=== PATIENT | male | born 1975 | race Caucasian/White ===

== ENCOUNTER 2021-08-10 06:45 | Observation (INO) ==
--- NOTE | 2021-08-10 07:01 | CT Scan Report ---
CT SCAN OF THE BRAIN WITHOUT IV CONTRAST CLINICAL HISTORY: Strokelike symptoms. Left-sided weakness. COMPARISON STUDY: No priors. TECHNIQUE: Unenhanced axial CT scan of the brain is performed from the vertex to the skull base. A d ose lowering technique was utilized adhering to the principles of ALARA. CT DOSE: 638.56 mGycm FINDINGS: Brain parenchyma: A small chronic lacunar infarct is noted in the left cerebellar hemisphere. There i s no hemorrhage, mass effect, or evidence of acute territorial ischemia by CT criteria. Gomez-white ma tter differentiation is preserved. No extra-axial fluid collection is seen. Ventricles, sulci, cisterns: Normal in configuration. Intracranial vasculature: The visualized intracranial vasculature at the skull base is normal in appe arance. Calvarium: Unremarkable. Sinuses and mastoids: The visualized paranasal sinuses are clear. The mastoid air cells are well pneu matized. Orbits: The bony orbits are grossly intact. IMPRESSION: 1. Partial no stroke 2. A small chronic lacunar infarct is noted in the left cerebellar hemisphere. ACT 112: Negative or not required by law. Electronically signed by: Carlos Kennedy M.D. 08/10/2021 7:00 AM
[2021-08-10] MEDS ORDERED: OPTIRAY 320 125ml IV ONE (07:03)
--- NOTE | 2021-08-10 07:16 | Emergency Department Note ---
Impression & Plan Weakness of left side of body, Brain TIA, HTN (hypertension) ED Provider Note Provider: Jose Miguel Pyle MD DATE OF SERVICE: 08/10/2021 CHIEF COMPLAINT: Left-sided weakness and numbness HISTORY OF PRESENT ILLNESS: Patient is a 45-year-old gentleman history of hypertension presenting with sudden onset left leg numbness and weakness starting around 6 AM the progressed around 6:20 AM or so to some left arm numbness and weakness. No associated headache or trauma. Denies right-sided symptoms. Denies any speech issues. Denies significant history of similar. Reports a history of occasionally some right-sided sciatica but this feels quite different again is on the left side. Patient states she took 4 baby aspirin came here for evaluation. Patient denies a history of stroke or CAD personally but there is a family history of A. fib. Patient is on amlodipine daily. Patient denies vomiting or clumsiness. Denies headache. Patient states he never has significantly elevated blood pressure like this. REVIEW OF SYSTEMS: A total of 10 review of systems was obtained and negative except as stated above in the HPI. PAST MEDICAL HISTORY: As noted above MEDICATIONS: Amlodipine Family history: A. 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 PERRL NECK: Trachea midline. Supple. ENT: Mucous membranes pink and moist. LUNGS: Airway patent. No retractions. HEART: Regular rate and rhythm. ABDOMEN: Soft and non-tender, without guarding or rebound. SKIN: Acyanotic, warm, dry, without rashes EXTREMITIES: Without swelling, tenderness or deformity NEUROLOGICAL: No aphasia. No facial droop or slurred speech. Normal strength and tone in the extremities. Sensation to gross touch normal although some subje ctive diminishment to touch reported by the patient however in the left arm and leg. He has good movement of these but states they feel a little bit off. Ambulatory. EK bpm sinus bradycardia. No PVC or PAC. No acute ST segment elevation noted with a QTC of 418. Normal axis. CONTINUOUS CARDIAC MONITORING: was ordered and showed a heart rate of 50s-70s bpm in normal sinus rhythm to sinus bradycardia Patient's laboratory studies and imaging reviewed. Differential includes Infection, dehydration, metabolic abnormality, hypo/hyperglycemia, electrolyte disturbance, anemia, hypoxia, cardiac sources, intracerebral event, toxicologic, neurologic, as well as other pathologies. IMPRESSION/MEDICAL DECISION MAKING: Patient is stroke alert from triage. Saw the patient on CT scan. No hem iplegia. CT of the head and CT angiogram of the head and neck completed reviewing radiology reads. Discussed with [facility] [place]. Discussed with patient and at bedside. Chronic lacunar infarct in age indeterminant left vertebral occlusion noted on CTH report. The patient has no headache or neck pain by report. Patient took 324mg aspirin prior to arrival. Discussion regarding risks and benefits and will defer against thrombolytics at this time as the patient has minimal symptoms and they are actually improving. Given the chronic findings as well as symptoms we will complete an MRI and have patient evaluated by the inpatient team as well as neurology here. Hospitalist contacted. Patient in discussion with telestroke neurology loaded with Plavix as well as Lipitor. MRI of the brain was ordered and later returned without evidence of acute stroke. DIAGNOSIS: Left sided numbness and weakness, TIA, hypertension DISPOSITION: Hospitalist will evaluate Patient was agreeable with this plan. Past Med/Surg History Medical History No active medical problems Family History Other No significant family history Social History Smoking Status: Never smoker Preferred Language: French Feels Safe at Home: Yes Allergies Allergies Allergy/AdvReac Type Severity Reaction Status Date / Time No Known Allergies Allergy Verified 08/10/21 09:00 Home Meds Home Medications Medication Instructions Recorded Confirmed amlodipine 2.5 mg tablet 2.5 mg PO QAM 08/10/21 08/10/21 aspirin 325 mg tablet 325 mg PO Q4H PRN 08/10/21 08/10/21 Results & Data (ED) Vital Signs Vital Signs - 24 hr 08/10/21 06:47 08/10/21 06:50 08/10/21 07:05 Temperature 36.9 C Temperature Source Temporal Artery Scan Pulse Rate 70 Pulse Rate from SpO2 Sensor Respiratory Rate 16 Blood Pressure 158/92 H 164/97 H Blood Pressure Mean 114 119 Pulse Oximetry 99 Oxygen Delivery Method Room Air Room Air Sepsis Recent Fever Within 48 Hours No Sepsis New/Unexplained Change in Mental Status No Sepsis Action Taken by Nursing No Action Required 08/10/21 07:06 08/10/21 07:15 08/10/21 07:18 Temperature Temperature Source Pulse Rate 62 75 Pulse Rate from SpO2 Sensor 64 Respiratory Rate 18 17 Blood Pressure 174/112 H Blood Pressure Mean 132 Pulse Oximetry 100 Oxygen Delivery Method Room Air Sepsis Recent Fever Within 48 Hours Sepsis New/Unexplained Change in Mental Status Sepsis Action Taken by Nursing 08/10/21 07:30 08/10/21 07:32 08/10/21 07:38 Temperature Temperature Source Pulse Rate 64 69 Pulse Rate from SpO2 Sensor Respiratory Rate 17 17 Blood Pressure 147/107 H 168/103 H Blood Pressure Mean 120 124 Pulse Oximetry Oxygen Delivery Method Sepsis Recent Fever Within 48 Hours Sepsis New/Unexplained Change in Mental Status Sepsis Action Taken by Nursing 08/10/21 07:45 08/10/21 08:03 Temperature Temperature Source Pulse Rate 70 58 L Pulse Rate from SpO2 Sensor 69 59 L Respiratory Rate 16 18 Blood Pressure 166/106 H Blood Pressure Mean 126 Pulse Oximetry 100 100 Oxygen Delivery Method Sepsis Recent Fever Within 48 Hours Sepsis New/Unexplained Change in Mental Status Sepsis Action Taken by Nursing Laboratory Data Result diagrams: 08/10/21 07:08 08/10/21 07:08 Lab Results 08/10/21 08/10/21 08/10/21 Range/Units 07:08 07:08 07:08 WBC 4.86 (4.8-10.8) K/uL RBC 4.57 L (4.7-6.1) M/uL Hgb 14.6 (14.0-18.0) g/dL Hct 41.7 L (42-52) % MCV 91.2 (80-100) fL MCH 31.9 (25-34) pg MCHC 35.0 (32-36) g/dL RDW Std Deviation 42.1 (36.4-46.3) fL RDW Coeff of Melvi 12.5 (11.5-14.5) % Plt Count 242 (130-400) K/uL MPV 9.8 (7.4-10.4) fL PT 12.0 (9.0-12.0) Seconds INR 1.1 (0.9-1.1) APTT 29.2 (21.0-31.0) Seconds PTT Ratio 1.1 Sodium 133 L (136-145) mmol/L Potassium 4.0 (3.5-5.1) mmol/L Chloride 103 (98-107) mmol/L Carbon Dioxide 27 (21-32) mmol/L Anion Gap 3 (3-11) BUN 21 (6-23) mg/dl Creatinine 1.07 (0.6-1.4) mg/dl Est Cr Clr Drug Dosing 80.2 ml/min Est GFR ( Amer) 96.7 ml/min Est GFR (Non-Af Amer) 83.4 ml/min BUN/Creatinine Ratio 19.6 (10-20) Glucose 108 H (70-99(Fasting)) mg/dl POC Glucose (70-99) mg/dl Calcium 9.0 (8.5-10.1) mg/dl Magnesium 1.9 (1.7-2.4) mg/dl Total Bilirubin 0.6 (0.2-1.0) mg/dl AST 21 (13-39) U/L ALT 18 (7-52) U/L Alkaline Phosphatase 55 (34-104) U/L Total Protein 6.0 (6.0-8.3) gm/dl Albumin 4.0 (3.4-5.0) gm/dl Globulin 2.0 L (2.5-4.0) gm/dl Albumin/Globulin Ratio 2.0 (0.9-2) SARS-CoV-2, RNA, NAAT (NEGATIVE) 08/10/21 08/10/21 Range/Units 07:11 08:11 WBC (4.8-10.8) K/uL RBC (4.7-6.1) M/uL Hgb (14.0-18.0) g/dL Hct (42-52) % MCV (80-100) fL MCH (25-34) pg MCHC (32-36) g/dL RDW Std Deviation (36.4-46.3) fL RDW Coeff of Melvi (11.5-14.5) % Plt Count (130-400) K/uL MPV (7.4-10.4) fL PT (9.0-12.0) Seconds INR (0.9-1.1) APTT (21.0-31.0) Seconds PTT Ratio Sodium (136-145) mmol/L Potassium (3.5-5.1) mmol/L Chloride (98-107) mmol/L Carbon Dioxide (21-32) mmol/L Anion Gap (3-11) BUN (6-23) mg/dl Creatinine (0.6-1.4) mg/dl Est Cr Clr Drug Dosing ml/min Est GFR ( Amer) ml/min Est GFR (Non-Af Amer) ml/min BUN/Creatinine Ratio (10-20) Glucose (70-99(Fasting)) mg/dl POC Glucose 110 H (70-99) mg/dl Calcium (8.5-10.1) mg/dl Magnesium (1.7-2.4) mg/dl Total Bilirubin (0.2-1.0) mg/dl AST (13-39) U/L ALT (7-52) U/L Alkaline Phosphatase (34-104) U/L Total Protein (6.0-8.3) gm/dl Albumin (3.4-5.0) gm/dl Globulin (2.5-4.0) gm/dl Albumin/Globulin Ratio (0.9-2) SARS-CoV-2, RNA, NAAT NEGATIVE (NEGATIVE) Administered Medications Discontinued Medications Atorvastatin Calcium (Atorvastatin 40 Mg Tab) 40 mg PO ONCE ONE Stop: 08/10/21 07:42 Last Admin: 08/10/21 08:15 Dose: 40 mg Documented by: [id number] Clopidogrel Bisulfate (Clopidogrel Bisulfate 300 Mg Tab) 300 mg PO NOW STA Stop: 08/10/21 07:41 Last Admin: 08/10/21 08:15 Dose: 300 mg Documented by: [id number] Ioversol (Optiray 320 125ml) 125 ml IV ONCE ONE Stop: 08/10/21 07:04 Last Admin: 08/10/21 07:03 Dose: 120 ml Documented by: [id number] Imaging Data Radiologist's Impression: Head CT 08/10/21 06:49 CT SCAN OF THE BRAIN WITHOUT IV CONTRAST CLINICAL HISTORY: Strokelike symptoms. Left-sided weakness. COMPARISON STUDY: No priors. TECHNIQUE: Unenhanced axial CT scan of the brain is performed from the vertex to the skull base. A dose lowering technique was utilized adhering to the principles of ALARA. CT DOSE: 638.56 mGycm FINDINGS: Brain parenchyma: A small chronic lacunar infarct is noted in the left cerebellar hemisphere. There is no hemorrhage, mass effect, or evidence of acute territorial ischemia by CT criteria. Gomez-white matter differentiation is pr eserved. No extra-axial fluid collection is seen. Ventricles, sulci, cisterns: Normal in configuration. Intracranial vasculature: The visualized intracranial vasculature at the skull base is normal in appearance. Calvarium: Unremarkable. Sinuses and mastoids: The visualized paranasal sinuses are clear. The mastoid air cells are well pneumatized. Orbits: The bony orbits are grossly intact. IMPRESSION: 1. Partial no stroke 2. A small chronic lacunar infarct is noted in the left cerebellar hemisphere. ACT 112: Negative or not required by law. Electronically signed by: Carlos Kennedy M.D. 08/10/2021 7:00 AM Head CTA 08/10/21 06:58 CT ANGIOGRAM OF THE BRAIN; CT ANGIOGRAM OF THE NECK CLINICAL HISTORY: Strokelike symptoms. Left-sided weakness. COMPARISON STUDY: Unenhanced CT of the brain performed the same day 08/10/2021. TECHNIQUE: Follow-up the IV administration of 120 of Optiray 320, CT angiogram of the head and neck was performed from the aortic arch to the vertex. Images are reviewed in the axial, sagittal, and coronal planes. 3-D MIPS images are created and assessed. IV contrast was administered without complication. All measurements were calculated based on NASCET criteria. A dose lowering technique was utilized adhering to the principles of ALARA. CT DOSE: 992.93 mGycm FINDINGS: Brain parenchyma: A small chronic lacunar infarct is noted in the left cerebellar hemisphere. There is no evidence of hemorrhage, mass effect, or acute territorial ischemia noting angiographic phase technique. There is no evidence of enhancing mass lesion on the angiogram phase images. The ventricles, sulci, and cisterns are normal in configuration. Gomez-white matter differentiation is preserved. No extra-axial fluid collection is seen. Thoracic aorta: Visualized portions of the thoracic aorta are normal in caliber. The aortic arch demonstrates 4-vessel variant anatomy. Right carotid arterial system: The right common carotid artery is widely patent, as are the right internal and external carotid arteries. Left carotid arterial system: The left common carotid artery is widely patent, as are the left internal and external carotid arteries. Vertebral arteries: The vertebral arteries are widely patent bilaterally noting a right-sided dominance. The left vertebral artery arises directly from the aortic arch. Subclavian arteries: Widely patent bilaterally. Intracranial vasculature: The internal carotid arteries are patent at the skull base, as are the anterior and middle cerebral arteries bilaterally. The vertebrobasilar system is diminutive but patent. There are large bilateral posterior communicating arteries and the posterior cerebral arteries are patent. The right vertebral artery is dominant. The left vertebral artery is diminutive. 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 There is no aneurysm seen throughout the intracranial circulation. Jugular veins: Patent bilaterally. Dural sinuses: Patent. Lung apices: Partially visualized upper lobe lung parenchyma appears clear. Soft tissues: The visualized pharyngeal soft tissues are normal in appearance noting angiographic phase technique. The oropharyngeal airway appears widely patent. The salivary and thyroid glands are normal in appearance. No cervical lymphadenopathy is seen. Skeletal structures: The calvarium appears intact. The cervical spine is within normal limits. Orbits: The bony orbits are intact. Orbital contents are normal as visualized. Sinuses and mastoids: The paranasal sinuses are clear. The mastoid air cells are well pneumatized. IMPRESSION: 1. There is no evidence of hemorrhage, mass effect, or acute territorial ischemia noting angiographic phase technique. 2. The vertebrobasilar system is diminutive MR large bilateral posterior communicating arteries. 3. 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 This vessel is diminutive and this is of indeterminant chronicity and significance. 4. Otherwise unremarkable CT angiogram of the brain. 5. Unremarkable CT angiogram of the neck. ACT 112: Negative or not required by law. Electronically signed by: Carlos Kennedy M.D. 08/10/2021 7:24 AM Neck CTA 08/10/21 06:58 CT ANGIOGRAM OF THE BRAIN; CT ANGIOGRAM OF THE NECK CLINICAL HISTORY: Strokelike symptoms. Left-sided weakness. COMPARISON STUDY: Unenhanced CT of the brain performed the same day 08/10/2021. TECHNIQUE: Follow-up the IV administration of 120 of Optiray 320, CT angiogram of the head and neck was performed from the aortic arch to the vertex. Images are reviewed in the axial, sagittal, and coronal planes. 3-D MIPS images are created and assessed. IV contrast was administered without complication. All measurements were calculated based on NASCET criteria. A dose lowering technique was utilized adhering to the principles of ALARA. CT DOSE: 992.93 mGycm FINDINGS: Brain parenchyma: A small chronic lacunar infarct is noted in the left cerebellar hemisphere. There is no evidence of hemorrhage, mass effect, or acute territorial ischemia noting angiographic phase technique. There is no evidence of enhancing mass lesion on the angiogram phase images. The ventricles, sulci, and cisterns are normal in configuration. Gomez-white matter differentiation is preserved. No extra-axial fluid collection is seen. Thoracic aorta: Visualized portions of the thoracic aorta are normal in caliber. The aortic arch demonstrates 4-vessel variant anatomy. Right carotid arterial system: The right common carotid artery is widely patent, as are the right internal and external carotid arteries. Left carotid arterial system: The left common carotid artery is widely patent, as are the left internal and external carotid arteries. Vertebral arteries: The vertebral arteries are widely patent bilaterally noting a right-sided dominance. The left vertebral artery arises directly from the aortic arch. Subclavian arteries: Widely patent bilaterally. Intracranial vasculature: The internal carotid arteries are patent at the skull base, as are the anterior and middle cerebral arteries bilaterally. The vertebrobasilar system is diminutive but patent. There are large bilateral posterior communicating arteries and the posterior cerebral arteries are patent. The right vertebral artery is dominant. The left vertebral artery is diminutive. 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 There is no aneurysm seen throughout the intracranial circulation. Jugular veins: Patent bilaterally. Dural sinuses: Patent. Lung apices: Partially visualized upper lobe lung parenchyma appears clear. Soft tissues: The visualized pharyngeal soft tissues are normal in appearance noting angiographic phase technique. The oropharyngeal airway appears widely patent. The salivary and thyroid glands are normal in appearance. No cervical lymphadenopathy is seen. Skeletal structures: The calvarium appears intact. The cervical spine is within normal limits. Orbits: The bony orbits are intact. Orbital contents are normal as visualized. Sinuses and mastoids: The paranasal sinuses are clear. The mastoid air cells are well pneumatized. IMPRESSION: 1. There is no evidence of hemorrhage, mass effect, or acute territorial ischemia noting angiographic phase technique. 2. The vertebrobasilar system is diminutive MR large bilateral posterior co mmunicating arteries. 3. 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 This vessel is diminutive and this is of indeterminant chronicity and significance. 4. Otherwise unremarkable CT angiogram of the brain. 5. Unremarkable CT angiogram of the neck. ACT 112: Negative or not required by law. Electronically signed by: Carlos Kennedy M.D. 08/10/2021 7:24 AM Brain MRI 08/10/21 07:43 MR brain wo con CLINICAL HISTORY: L weakness TECHNIQUE: Multiplanar and multisequence MR images of the brain were obtained without intravenous contrast. Comparison: Comparison is made to CTA head and neck 08/10/2021 FINDINGS: No abnormal restricted diffusion is identified. The white matter is unremarkable. The ventricular system is normal in appearance. No mass or abnormal enhancement is seen. There is no mass effect or midline shift. There is no evidence of acute intraparenchymal hemorrhage. No extra axial fluid collections are seen. The corpus callosum, pituitary gland, and cerebellar tonsils appear grossly unremarkable. Flow voids of the major intracranial arterial vessels are identified. The imaged portions of the paranasal sinuses, mastoid air cells, and orbits are unremarkable. IMPRESSION: No acute abnormalities. ACT 112: Negative or not required by law. Electronically signed by: Lev Costello M.D. 08/10/2021 8:58 AM Discharge Plan Visit Data Chief Complaint: Stroke/CVA Symptoms Stated Complaint: STROKE SYMPTOMS ED Provider: Jose Miguel Pyle Discharge Problem: Weakness of left side of body, Brain TIA, HTN (hypertension) Patient Disposition: Admitted As Inpatient Discharge Instructions Interventions: ED Discharge Assessment Last Done: 08/10/21 10:04 Discharge Problem: HTN (hypertension) Qualifiers: Hypertension type: unspecified Qualified Code(s): I10 - Essential (primary) hypertension
[2021-08-10 07:26] LABS: Hematocrit (blood only) 41.7 % (42-52); Hemoglobin 14.6 g/dL (14.0-18.0); Mean Corpuscular Hemoglobin 31.9 pg (25-34); Mean Corpuscular Volume 91.2 fL (80-100); Mean Platelet Volume 9.8 fL (7.4-10.4); Platelet Count 242 K/uL (130-400); RDW Coefficient of Variation 12.5 % (11.5-14.5); RDW Standard Deviation 42.1 fL (36.4-46.3); Red Blood Count 4.57 M/uL (4.7-6.1); White Blood Count 4.86 K/uL (4.8-10.8)
--- NOTE | 2021-08-10 07:26 | CT Scan Report ---
CT ANGIOGRAM OF THE BRAIN; CT ANGIOGRAM OF THE NECK CLINICAL HISTORY: Strokelike symptoms. Left-sided weakness. COMPARISON STUDY: Unenhanced CT of the brain performed the same day 08/10/2021. TECHNIQUE: Follow-up the IV administration of 120 of Optiray 320, CT angiogram of the head and neck w as performed from the aortic arch to the vertex. Images are reviewed in the axial, sagittal, and stephen nal planes. 3-D MIPS images are created and assessed. IV contrast was administered without complicati on. All measurements were calculated based on NASCET criteria. A dose lowering technique was utilize d adhering to the principles of ALARA. CT DOSE: 992.93 mGycm FINDINGS: Brain parenchyma: A small chronic lacunar infarct is noted in the left cerebellar hemisphere. There i s no evidence of hemorrhage, mass effect, or acute territorial ischemia noting angiographic phase akira hnique. There is no evidence of enhancing mass lesion on the angiogram phase images. The ventricles, sulci, and cisterns are normal in configuration. Gomez-white matter differentiation is preserved. No e xtra-axial fluid collection is seen. Thoracic aorta: Visualized portions of the thoracic aorta are normal in caliber. The aortic arch demo nstrates 4-vessel variant anatomy. Right carotid arterial system: The right common carotid artery is widely patent, as are the right int ernal and external carotid arteries. Left carotid arterial system: The left common carotid artery is widely patent, as are the left manager internship al and external carotid arteries. Vertebral arteries: The vertebral arteries are widely patent bilaterally noting a right-sided dominan ce. The left vertebral artery arises directly from the aortic arch. Subclavian arteries: Widely patent bilaterally. Intracranial vasculature: The internal carotid arteries are patent at the skull base, as are the ante rior and middle cerebral arteries bilaterally. The vertebrobasilar system is diminutive but patent. T here are large bilateral posterior communicating arteries and the posterior cerebral arteries are pat ent. The right vertebral artery is dominant. The left vertebral artery is diminutive. There is a focu s of high-grade stenosis with near complete occlusion of the left vertebral artery at the skull base seen on axial image 37. There is no aneurysm seen throughout the intracranial circulation. Jugular veins: Patent bilaterally. Dural sinuses: Patent. Lung apices: Partially visualized upper lobe lung parenchyma appears clear. Soft tissues: The visualized pharyngeal soft tissues are normal in appearance noting angiographic pha se technique. The oropharyngeal airway appears widely patent. The salivary and thyroid glands are nor mal in appearance. No cervical lymphadenopathy is seen. Skeletal structures: The calvarium appears intact. The cervical spine is within normal limits. Orbits: The bony orbits are intact. Orbital contents are normal as visualized. Sinuses and mastoids: The paranasal sinuses are clear. The mastoid air cells are well pneumatized. IMPRESSION: 1. There is no evidence of hemorrhage, mass effect, or acute territorial ischemia noting angiographic phase technique. 2. The vertebrobasilar system is diminutive MR large bilateral posterior communicating arteries. 3. There is focal high-grade stenosis with near complete occlusion of the left vertebral artery at th e skull base. This vessel is diminutive and this is of indeterminant chronicity and significance. 4. Otherwise unremarkable CT angiogram of the brain. 5. Unremarkable CT angiogram of the neck. ACT 112: Negative or not required by law. Electronically signed by: Carlos Kennedy M.D. 08/10/2021 7:24 AM
[2021-08-10 07:35] LABS: INR 1.1 (0.9-1.1); Partial Thromboplastin Ratio 1.1; Partial Thromboplastin Time 29.2 Seconds (21.0-31.0)
[2021-08-10] MEDS ORDERED: CLOPIDOGREL BISULFATE 300 MG TAB PO STA (07:40)
[2021-08-10] MEDS ORDERED: ATORVASTATIN 40 MG TAB PO ONE (07:41)
[2021-08-10 07:45] LABS: BUN Creatinine Ratio 19.6 (10-20); Bilirubin,Total 0.6 mg/dl (0.2-1.0); Creatinine Clr Calc Pharmacy 80.2 ml/min; Est GFR (African American) 96.7 ml/min; Est GFR (Non-African American) 83.4 ml/min; Magnesium 1.9 mg/dl (1.7-2.4)
--- NOTE | 2021-08-10 08:59 | Magnetic Resonance Report ---
MR brain wo con CLINICAL HISTORY: L weakness TECHNIQUE: Multiplanar and multisequence MR images of the brain were obtained without intravenous con trast. Comparison: Comparison is made to CTA head and neck 08/10/2021 FINDINGS: No abnormal restricted diffusion is identified. The white matter is unremarkable. The ventricular sys tem is normal in appearance. No mass or abnormal enhancement is seen. There is no mass effect or midl ine shift. There is no evidence of acute intraparenchymal hemorrhage. No extra axial fluid collection s are seen. The corpus callosum, pituitary gland, and cerebellar tonsils appear grossly unremarkable. Flow voids of the major intracranial arterial vessels are identified. The imaged portions of the para nasal sinuses, mastoid air cells, and orbits are unremarkable. IMPRESSION: No acute abnormalities. ACT 112: Negative or not required by law. Electronically signed by: Lev Costello M.D. 08/10/2021 8:58 AM
--- NOTE | 2021-08-10 10:54 | History & Physical Report ---
Date of Service August 10, 2021 Assessment & Plan (1) Stroke-like symptoms: Plan: Stroke like symptoms, suspected TIA- Stroke work up including CT head, CTA head and neck, MRI brain completed- no acute stroke. Symptoms improving. Declined tPA. Received full dose aspirin and plavix and lipitor. Will monitor with stroke protocol, continue tele, echo, DAPT, high intensity statin. Neurology consulted- await further recommendations. PT/OT eval. Essential HTN- on norvasc low dose, will allow permissive HTN until tomorrow morning. Dispo- Medsurg tele observation status DVT ppx- SCDs. 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 At 6 am, while he was about to go for his regular exercise, he experienced left leg heaviness and weakness which did not improve and hence he took 4 baby aspirin at 6:20. He then noticed left arm weakness and hence came to the ED for evaluation. Stroke alert was called and he was seen by teleneurology- however he declined tPA due to minimal symptoms and they were already improving. Stroke work up including CT head, CTA head and neck, MRI brain did not show any acute finding. Hospitalist service was consulted for further management. During my encounter, his symptoms have significantly improved although not back to baseline yet. He did not take his amlodipine today yet. He is not on any other medications. No personal or family history of CVA or VTE. No personal history of cardiopulmonary issues. No h/o CAD or Afib. He does not smoke. Allergies Allergy/AdvReac Type Severity Reaction Status Date / Time No Known Allergies Allergy Verified 08/10/21 09:00 Home Medications Medication Instructions Recorded Confirmed Type amlodipine 2.5 mg tablet 2.5 mg PO QAM 08/10/21 08/10/21 History aspirin 325 mg tablet 325 mg PO Q4H PRN 08/10/21 08/10/21 History Past Med/Surg History Medical History No active medical problems Family History Other No significant family history Social History Smoking Status: Never smoker Hx Alcohol Use: No Hx Substance Use: No Preferred Language: Bolivian Communication Ability: Effective Building Cleaner Required: No Beliefs That Will Affect Care: None Current Living Situation: Family Other Information That Helps Us Care for You: No Feels Safe at Home: Yes Safety Concerns: Feels Safe At This Time Assistive Devices: Glasses Physical Exam Physical Exam: General: Sitting comfortably in bed, not in distress, on room air HEENT: EOMI, GOPI, MMM Chest: Clear breath sounds bilaterally, no wheezes or crackles CVS: Regular rate and rhythm, normal heart sounds, no murmur Abdomen: Soft, non tender, not distended, normal bowel sounds Neuro: Awake, alert, orientedx4, non focal exam. No pronator drift. Strength 5/5 in all extremities. Sensation grossly intact. Speech fluent. Finger nose test intact. Cranial nerve exam grossly intact. Gait not checked. Extremities: No cyanosis, clubbing or edema Results & Data Results & Data ([facility]) Vital Signs (Past 12 Hours) Vital Signs Temp Pulse Pulse Resp BP BP Pulse Ox 08/10/21 09:58 60 16 145/95 H 100 08/10/21 08:03 58 L 18 100 08/10/21 07:45 70 16 166/106 H 100 08/10/21 07:38 168/103 H 08/10/21 07:32 69 17 08/10/21 07:30 64 17 147/107 H 08/10/21 07:15 75 17 174/112 H 08/10/21 07:06 62 18 100 08/10/21 07:05 164/97 H 08/10/21 06:47 36.9 C 70 16 158/92 H 99 Laboratory Results Laboratory Results WBC 4.86 K/uL (4.8-10.8) 08/10/21 07:08 RBC 4.57 M/uL (4.7-6.1) L 08/10/21 07:08 Hgb 14.6 g/dL (14.0-18.0) 08/10/21 07:08 Hct 41.7 % (42-52) L 08/10/21 07:08 MCV 91.2 fL (80-100) 08/10/21 07:08 MCH 31.9 pg (25-34) 08/10/21 07:08 MCHC 35.0 g/dL (32-36) 08/10/21 07:08 RDW Std Deviation 42.1 fL (36.4-46.3) 08/10/21 07:08 RDW Coeff of Melvi 12.5 % (11.5-14.5) 08/10/21 07:08 Plt Count 242 K/uL (130-400) 08/10/21 07:08 MPV 9.8 fL (7.4-10.4) 08/10/21 07:08 PT 12.0 Seconds (9.0-12.0) 08/10/21 07:08 INR 1.1 (0.9-1.1) 08/10/21 07:08 APTT 29.2 Seconds (21.0-31.0) 08/10/21 07:08 PTT Ratio 1.1 08/10/21 07:08 Sodium 133 mmol/L (136-145) L 08/10/21 07:08 Potassium 4.0 mmol/L (3.5-5.1) 08/10/21 07:08 Chloride 103 mmol/L (98-107) 08/10/21 07:08 Carbon Dioxide 27 mmol/L (21-32) 08/10/21 07:08 Anion Gap 3 (3-11) 08/10/21 07:08 BUN 21 mg/dl (6-23) 08/10/21 07:08 Creatinine 1.07 mg/dl (0.6-1.4) 08/10/21 07:08 Est Cr Clr Drug Dosing 80.2 ml/min 08/10/21 07:08 Est GFR ( Amer) 96.7 ml/min 08/10/21 07:08 Est GFR (Non-Af Amer) 83.4 ml/min 08/10/21 07:08 BUN/Creatinine Ratio 19.6 (10-20) 08/10/21 07:08 Glucose 108 mg/dl (70-99(Fasting)) H 08/10/21 07:08 POC Glucose 110 mg/dl (70-99) H 08/10/21 07:11 Calcium 9.0 mg/dl (8.5-10.1) 08/10/21 07:08 Magnesium 1.9 mg/dl (1.7-2.4) 08/10/21 07:08 Total Bilirubin 0.6 mg/dl (0.2-1.0) 08/10/21 07:08 AST 21 U/L (13-39) 08/10/21 07:08 ALT 18 U/L (7-52) 08/10/21 07:08 Alkaline Phosphatase 55 U/L (34-104) 08/10/21 07:08 Total Protein 6.0 gm/dl (6.0-8.3) 08/10/21 07:08 Albumin 4.0 gm/dl (3.4-5.0) 08/10/21 07:08 Globulin 2.0 gm/dl (2.5-4.0) L 08/10/21 07:08 Albumin/Globulin Ratio 2.0 (0.9-2) 08/10/21 07:08 SARS-CoV-2, RNA, NAAT NEGATIVE (NEGATIVE) 08/10/21 08:[address] 08/10/21 06:49 CT SCAN OF THE BRAIN WITHOUT IV CONTRAST CLINICAL HISTORY: Strokelike symptoms. Left-sided weakness. COMPARISON STUDY: No priors. TECHNIQUE: Unenhanced axial CT scan of the brain is performed from the vertex to the skull base. A dose lowering technique was utilized adhering to the principles of ALARA. CT DOSE: 638.56 mGycm FINDINGS: Brain parenchyma: A small chronic lacunar infarct is noted in the left cerebellar hemisphere. There is no hemorrhage, mass effect, or evidence of acute territorial ischemia by CT criteria. Gomez-white matter differentiation is preserved. No extra-axial fluid collection is seen. Ventricles, sulci, cisterns: Normal in configuration. Intracranial vasculature: The visualized intracranial vasculature at the skull base is normal in appearance. Calvarium: Unremarkable. Sinuses and mastoids: The visualized paranasal sinuses are clear. The mastoid air cells are well pneumatized. Orbits: The bony orbits are grossly intact. IMPRESSION: 1. Partial no stroke 2. A small chronic lacunar infarct is noted in the left cerebellar hemisphere. ACT 112: Negative or not required by law. Electronically signed by: Carlos Kennedy M.D. 08/10/2021 7:00 AM Head CTA 08/10/21 06:58 CT ANGIOGRAM OF THE BRAIN; CT ANGIOGRAM OF THE NECK CLINICAL HISTORY: Strokelike symptoms. Left-sided weakness. COMPARISON STUDY: Unenhanced CT of the brain performed the same day 08/10/2021. TECHNIQUE: Follow-up the IV administration of 120 of Optiray 320, CT angiogram of the head and neck was performed from the aortic arch to the vertex. Images are reviewed in the axial, sagittal, and coronal planes. 3-D MIPS images are created and assessed. IV contrast was administered without complication. All measurements were calculated based on NASCET criteria. A dose lowering technique was utilized adhering to the principles of ALARA. CT DOSE: 992.93 mGycm FINDINGS: Brain parenchyma: A small chronic lacunar infarct is noted in the left cerebellar hemisphere. There is no evidence of hemorrhage, mass effect, or acute territorial ischemia noting angiographic phase technique. There is no evidence of enhancing mass lesion on the angiogram phase images. The ventricles, sulci, and cisterns are normal in configuration. Gomez-white matter differentiation is preserved. No extra-axial fluid collection is seen. Thoracic aorta: Visualized portions of the thoracic aorta are normal in caliber. The aortic arch demonstrates 4-vessel variant anatomy. Right carotid arterial system: The right common carotid artery is widely patent, as are the right internal and external carotid arteries. Left carotid arterial system: The left common carotid artery is widely patent, as are the left internal and external carotid arteries. Vertebral arteries: The vertebral arteries are widely patent bilaterally noting a right-sided dominance. The left vertebral artery arises directly from the aortic arch. Subclavian arteries: Widely patent bilaterally. Intracranial vasculature: The internal carotid arteries are patent at the skull base, as are the anterior and middle cerebral arteries bilaterally. The vertebrobasilar system is diminutive but patent. There are large bilateral posterior communicating arteries and the posterior cerebral arteries are patent. The right vertebral artery is dominant. The left vertebral artery is diminutive. 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 There is no aneurysm seen throughout the intracranial circulation. Jugular veins: Patent bilaterally. Dural sinuses: Patent. Lung apices: Partially visualized upper lobe lung parenchyma appears clear. Soft tissues: The visualized pharyngeal soft tissues are normal in appearance noting angiographic phase technique. The oropharyngeal airway appears widely patent. The salivary and thyroid glands are normal in appearance. No cervical lymphadenopathy is seen. Skeletal structures: The calvarium appears intact. The cervical spine is within normal limits. Orbits: The bony orbits are intact. Orbital contents are normal as visualized. Sinuses and mastoids: The paranasal sinuses are clear. The mastoid air cells are well pneumatized. IMPRESSION: 1. There is no evidence of hemorrhage, mass effect, or acute territorial ischemia noting angiographic phase technique. 2. The vertebrobasilar system is diminutive MR large bilateral posterior communicating arteries. 3. 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 This vessel is diminutive and this is of indeterminant chronicity and significance. 4. Otherwise unremarkable CT angiogram of the brain. 5. Unremarkable CT angiogram of the neck. ACT 112: Negative or not required by law. Electronically signed by: Carlos Kennedy M.D. 08/10/2021 7:24 AM Neck CTA 08/10/21 06:58 CT ANGIOGRAM OF THE BRAIN; CT ANGIOGRAM OF THE NECK CLINICAL HISTORY: Strokelike symptoms. Left-sided weakness. COMPARISON STUDY: Unenhanced CT of the brain performed the same day 08/10/2021. TECHNIQUE: Follow-up the IV administration of 120 of Optiray 320, CT angiogram of the head and neck was performed from the aortic arch to the vertex. Images are reviewed in the axial, sagittal, and coronal planes. 3-D MIPS images are created and assessed. IV contrast was administered without complication. All measurements were calculated based on NASCET criteria. A dose lowering technique was utilized adhering to the principles of ALARA. CT DOSE: 992.93 mGycm FINDINGS: Brain parenchyma: A small chronic lacunar infarct is noted in the left cerebellar hemisphere. There is no evidence of hemorrhage, mass effect, or acute territorial ischemia noting angiographic phase technique. There is no evidence of enhancing mass lesion on the angiogram phase images. The ventricles, sulci, and cisterns are normal in configuration. Gomez-white matter differentiation is preserved. No extra-axial fluid collection is seen. Thoracic aorta: Visualized portions of the thoracic aorta are normal in caliber. The aortic arch demonstrates 4-vessel variant anatomy. Right carotid arterial system: The right common carotid artery is widely patent, as are the right internal and external carotid arteries. Left carotid arterial system: The left common carotid artery is widely patent, as are the left internal and external carotid arteries. Vertebral arteries: The vertebral arteries are widely patent bilaterally noting a right-sided dominance. The left vertebral artery arises directly from the aortic arch. Subclavian arteries: Widely patent bilaterally. Intracranial vasculature: The internal carotid arteries are patent at the skull base, as are the anterior and middle cerebral arteries bilaterally. The vertebrobasilar system is diminutive but patent. There are large bilateral posterior communicating arteries and the posterior cerebral arteries are patent. The right vertebral artery is dominant. The left vertebral artery is diminutive. 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 There is no aneurysm seen throughout the intracranial circulation. Jugular veins: Patent bilaterally. Dural sinuses: Patent. Lung apices: Partially visualized upper lobe lung parenchyma appears clear. Soft tissues: The visualized pharyngeal soft tissues are normal in appearance noting angiographic phase technique. The oropharyngeal airway appears widely patent. The salivary and thyroid glands are normal in appearance. No cervical lymphadenopathy is seen. Skeletal structures: The calvarium appears intact. The cervical spine is within normal limits. Orbits: The bony orbits are intact. Orbital contents are normal as visualized. Sinuses and mastoids: The paranasal sinuses are clear. The mastoid air cells are well pneumatized. IMPRESSION: 1. There is no evidence of hemorrhage, mass effect, or acute territorial ischemia noting angiographic phase technique. 2. The vertebrobasilar system is diminutive MR large bilateral posterior communicating arteries. 3. 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 This vessel is diminutive and this is of indeterminant chronicity and significance. 4. Otherwise unremarkable CT angiogram of the brain. 5. Unremarkable CT angiogram of the neck. ACT 112: Negative or not required by law. Electronically signed by: Carlos Kennedy M.D. 08/10/2021 7:24 AM Brain MRI 08/10/21 07:43 MR brain wo con CLINICAL HISTORY: L weakness TECHNIQUE: Multiplanar and multisequence MR images of the brain were obtained without intravenous contrast. Comparison: Comparison is made to CTA head and neck 08/10/2021 FINDINGS: No abnormal restricted diffusion is identified. The white matter is unremarkable. The ventricular system is normal in appearance. No mass or abnormal enhancement is seen. There is no mass effect or midline shift. There is no evidence of acute intraparenchymal hemorrhage. No extra axial fluid collections are seen. The corpus callosum, pituitary gland, and cerebellar tonsils appear grossly unremarkable. Flow voids of the major intracranial arterial vessels are identified. The imaged portions of the paranasal sinuses, mastoid air cells, and orbits are unremarkable. IMPRESSION: No acute abnormalities. ACT 112: Negative or not required by law. Electronically signed by: Lev Costello M.D. 08/10/2021 8:58 AM Code Status & VTE Plan VTE Prophylaxis Plan VTE Prophylaxis will be ordered: Yes
[2021-08-10] MEDS ORDERED: PHARMACIST DISCHARGE MED REC CONSULT PRN (11:19)
--- NOTE | 2021-08-10 12:24 | Neurology Consultation ---
Date of Consultation August 10, 2021 Assessment & Plan (1) Stroke-like symptoms: 1. aspirin 81 mg along with plavix 75 mg daily x 21 days then plavix for life 2. optimize HTN, HLD, LDL <70 3. TTE- if not already done 4. 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 At 6 am, while he was about to go for his regular exercise, he experienced left leg heaviness and weakness which did not improve. He took 4 baby aspirin at 6:20. He noticed left arm weakness and came to the ED for evaluation. Stroke alert was called and he was seen by teleneurology- however he declined tPA due to minimal symptoms and they were already improving. Stroke work up including CT head, CTA head and neck, MRI brain did not show any acute finding. Hospitalist service was consulted for further management. He did not take his amlodipine prior to arrival. Allergies Allergy/AdvReac Type Severity Reaction Status Date / Time No Known Allergies Allergy Verified 08/10/21 09:00 Home Medications Medication Instructions Recorded Confirmed Type amlodipine 2.5 mg tablet 2.5 mg PO QAM 08/10/21 08/10/21 History aspirin 325 mg tablet 325 mg PO Q4H PRN 08/10/21 08/10/21 History Patient History Medical History No active medical problems Family History Other No significant family history Social History Smoking Status: Never smoker Hx Alcohol Use: No Hx Substance Use: No Preferred Language: Danish Communication Ability: Effective Strip Polisher Required: No Beliefs That Will Affect Care: None Current Living Situation: Family Other Information That Helps Us Care for You: No Feels Safe at Home: Yes Safety Concerns: Feels Safe At This Time Assistive Devices: Glasses Results & Data ([facility]) Vital Signs (Past 12 Hours) Vital Signs Temp Pulse Pulse Pulse Resp BP BP 08/10/21 11:19 36.6 C 58 L 18 162/102 H 08/10/21 10:15 36.6 C 59 L 18 162/102 H 08/10/21 09:58 60 16 145/95 H 08/10/21 08:03 58 L 18 08/10/21 07:45 70 16 166/106 H 08/10/21 07:38 168/103 H 08/10/21 07:32 69 17 08/10/21 07:30 64 17 147/107 H 08/10/21 07:15 75 17 174/112 H 08/10/21 07:06 62 18 08/10/21 07:05 164/97 H 08/10/21 06:47 36.9 C 70 16 158/92 H Pulse Ox 08/10/21 11:19 99 08/10/21 10:15 99 08/10/21 09:58 100 08/10/21 08:03 100 08/10/21 07:45 100 08/10/21 07:38 08/10/21 07:32 08/10/21 07:30 08/10/21 07:15 08/10/21 07:06 100 08/10/21 07:05 08/10/21 06:47 99 Laboratory Results Abnormal lab results 08/10/21 08/10/21 08/10/21 Range/Units 07:08 07:08 07:11 RBC 4.57 L (4.7-6.1) M/uL Hct 41.7 L (42-52) % Sodium 133 L (136-145) mmol/L Glucose 108 H (70-99(Fasting)) mg/dl POC Glucose 110 H (70-99) mg/dl Globulin 2.0 L (2.5-4.0) gm/dl Diagnostic Findings CT head-Partial no stroke . A small chronic lacunar infarct is noted in the left cerebellar hemisphere. CTA head/neck-There is no evidence of hemorrhage, mass effect, or acute terr itorial ischemia noting angiographic phase technique. . The vertebrobasilar system is diminutive MR large bilateral posterior communicating arteries. . 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 This vessel is diminutive and this is of indeterminant chronicity and significance. Otherwise unremarkable CT angiogram of the brain. Unremarkable CT angiogram of the neck. MRI brain-No abnormal restricted diffusion is identified. The white matter is unremarkable. The ventricular system is normal in appearance. No mass or abnormal enhancement is seen. There is no mass effect or midline shift. There is no evidence of acute intraparenchymal hemorrhage. No extra axial fluid collections are seen. The corpus callosum, pituitary gland, and cerebellar tonsils appear grossly unremarkable. Flow voids of the major intracranial arterial vessels are identified. The imaged portions of the paranasal sinuses, mastoid air cells, and orbits are unremarkable.
--- NOTE | 2021-08-10 13:56 | Consultation Report ---
DATE OF SERVICE: 08/10/2021 REASON FOR CONSULTATION: Possible transient ischemic attack. 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 He was in his usual state of health this morning, awakened at 5:00 a.m., was reading in a yoga position and then started doing some back stretches, which were typical for him and included a plank. He then noticed left leg heaviness and clumsiness. He assessed and showered and upon exiting the shower, noted some left arm heaviness and clumsiness as well.When the patient was at home, he took 4 baby aspirin and went to the ER. Sx lated 1.5 hours. Telestroke advised against TPA. Pt was loaded with Plavix. The patient was seen by stroke neurology. There were no other symptoms. There were no cranial nerve symptoms. There is no headache, change in vision, double vision, blind spots,vertigo, nausea scintillating visual phenomenon. There was no numbness in the face, change in speech or language. He was able to dress. There was no neck pain. There was no chest pain, palpitations or shortness of breath. He has otherwise been well. He has not had any recent medical or dental procedures, head or neck injury, or chiropractic manipulation of the neck. He has no prior history of transient ischemic attack. He has no history of neck injury. No prior neurolgic sx. He does not have migraine. Neurologic symptoms lasted about an hour and a half and resolved spontaneously. 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 The right vertebral artery is diminutive without high-grade stenosis. No significant intracranial stenosis was noted. There was no venous sinus thrombosis. MRI of the brain shows the aforementioned left cerebellar hemisphere lacune which appears old and is otherwise unremarkable. Electrocardiogram shows sinus bradycardia and is otherwise unremarkable. White count, H and H, and platelet count are normal. PT, PTT are normal. Hypercoagulable state workup is pending. Serum sodium is 133. Nonfasting glucose was 108, globulin 2.0. Urinalysis not performed. COVID negative. Vitals on admission 174/112, afebrile with a normal pulse. A PAST MEDICAL HISTORY: Notable for hypertension. His last outpatient LDL was approximately 135. He is not known to be diabetic. He has no history of DVT, PE, nosebleeds, or cancer. He is known to have an abnormal echo with some aortic regurge and some mitral valve prolapse, which has been stable. He has not had rheumatic fever. PAST SURGICAL HISTORY: [place] teeth. FAMILY HISTORY: Mother had SVT and paroxysmal atrial fibrillation. Father had an anterior wall MA at age 61 and has a low ejection fraction. Grandmother had stroke thought to be related to mitral valvular disease, which is rheumatic. SOCIAL HISTORY: He does not smoke, rarely drinks alcohol. REVIEW OF SYSTEMS: Notable for stable weight. No recent illness. The patient has been working extended hours at work. PHYSICAL EXAMINATION: On examination, the patient is awake and alert. Speech and language are normal. Affect appropriate. Repetitions and naming are normal. There is no right/left confusion. There is no aphasia. There are no carotid bruits, no vertebral bruits, no supraclavicular bruits. Radial pulses are palpably intact. Heart has regular rate and rhythm. I do not appreciate a murmur. No calf swelling or tenderness is noted. Posterior tibial pulses are normal. Pupils are equal, round and reactive to light. Optic nerves unremarkable. Normal mays and motility without visual extinction. Normal facial sensation, facial symmetry. Tongue is midline. Speech is nondysarthric. Motor 5/5, no drift. Normal rapid alternating movements. Symmetric reflexes, downgoing toes. Dzgafn-gk-dcyu and rdrx-jv-yjhj are normal. Sensation is intact to light touch and temperature. No double simultaneous extinction is noted. Gait and tandem are normal. IMPRESSION: Likely transient ischemic attack, albeit that no cranial nerve symptoms were noted. Localization unclear. Cannot confidently say that sx are referable to posterior circ or left vert stenosis. Radiographic l cerebellar lacune, old. PLAN: Echo with bubble study. If PFO, then venous ultrasound of the upper and lower extremities. Statin with goal LDL of 70 or less. Permissive hypertension. The patient will need a playground monitor on discharge. Defer to cardiology whether or not he should have an implantable loop monitor given the family history of atrial fibrillation.Dual antiplt Given that there were no cranial nerve symptoms, recommend MRI of the cervical spine, although there is nothing to suggest a transient ischemia of the cord, i.e., there were no neck pain, no Lhermitte's. The posterior circulation is diminutive, which is likely congenital given the large size of the posterior cerebral arteries. There is stenosis of the left vertebral and theoretically that could have been responsible for the left cerebellar lacune. This current episode does not clearly localized to the posterior circulation. We will follow with you. Job ID: [id number] [facility]
[2021-08-10] MEDS ORDERED: GADOBUTROL 65ML VIAL IV ONE (17:06)
--- NOTE | 2021-08-10 18:35 | Electrocardiogram Report ---
Test Reason : Blood Pressure : / mmHG Vent. Rate : 057 BPM Atrial Rate : 057 BPM P-R Int : 178 ms QRS Dur : 092 ms QT Int : 430 ms P-R-T Axes : 065 052 055 degrees QTc Int : 418 ms Sinus bradycardia Otherwise normal ECG When compared with ECG of 19-JUN-2018 21:28, Vent. rate has decreased BY 35 BPM Confirmed by Joaquín Benitez ([id number]) on 08/10/2021 6:35:03 PM Referred By: REFERRED SELF Confirmed By:Joaquín Benitez
--- NOTE | 2021-08-10 18:37 | Magnetic Resonance Report ---
MR cervical spine wo/w con CLINICAL HISTORY: Left arm and leg weakness.. COMPARISON: None. TECHNIQUE: Multiplanar multisequence images of the Cervical Spine were performed were performed with and without IV contrast. Contrast Volume: 6 ml of Gadavist FINDINGS: There is no evidence for vertebral body fracture. The heights of the vertebral bodies are maintained. The vertebral bodies are in anatomic alignment. Homogeneous marrow signal seen without evidence for marrow edema or marrow replacement. The odontoid is intact and the atlantoaxial articulation is withi n normal limits. The craniocervical junction is within normal limits. Homogeneous signal is seen with in the spinal cord. There is no abnormal enhancement following contrast administration. C2-3: The disc space height is maintained. There are no focal disc protrusions or extrusions identi fied. The spinal canal is patent with no encroachment upon the spinal cord. The neural foramen are p atent bilaterally. There is no evidence for nerve root encroachment. The apophyseal joints are within normal limits. C3-4: The disc space height is maintained. There are no focal disc protrusions or extrusions identi fied. The spinal canal is patent with no encroachment upon the spinal cord. The neural foramen are p atent bilaterally. There is no evidence for nerve root encroachment. The apophyseal joints are within normal limits. C4-5: The disc space height is maintained. There are no focal disc protrusions or extrusions identi fied. The spinal canal is patent with no encroachment upon the spinal cord. The neural foramen are p atent bilaterally. There is no evidence for nerve root encroachment. The apophyseal joints are within normal limits. C5-6: The disc space height is maintained. There are no focal disc protrusions or extrusions identi fied. The spinal canal is patent with no encroachment upon the spinal cord. The neural foramen are p atent bilaterally. There is no evidence for nerve root encroachment. The apophyseal joints are within normal limits. C6-7: The disc space height is maintained. There are no focal disc protrusions or extrusions identi fied. The spinal canal is patent with no encroachment upon the spinal cord. The neural foramen are p atent bilaterally. There is no evidence for nerve root encroachment. The apophyseal joints are within normal limits. C7-T1: The disc space height is maintained. There are no focal disc protrusions or extrusions ident ified. The spinal canal is patent with no encroachment upon the spinal cord. The neural foramen are patent bilaterally. There is no evidence for nerve root encroachment. The apophyseal joints are withi n normal limits. IMPRESSION: 1. Negative MR of the cervical spine. ACT 112: Negative or not required by law. Electronically signed by: Rizwan Dietrich M.D. 08/10/2021 6:35 PM
--- NOTE | 2021-08-10 18:43 | Ultrasound Report ---
US venous doppler LE BI CLINICAL HISTORY: Bilateral leg pain and swelling COMPARISON: None available at the time of this dictation. TECHNIQUE: Bilateral lower extremity real-time compression venous ultrasound with Color Doppler imagi ng. Utilizing real-time ultrasonic imaging multiple real time high-resolution ultrasonic images with comp ression and noncompression maneuvers of the deep venous system in addition to color doppler imaging w ere performed from the common femoral vein through the proximal calf veins. FINDINGS: Currently there is normal compressibility of the deep venous system from the common femoral vein thro ugh the proximal calf veins. No current evidence of acute thrombosis is identified. Impression: No evidence of deep venous thrombus. ACT 112: Negative or not required by law. Electronically signed by: Rizwan Dietrich M.D. 08/10/2021 6:41 PM
--- NOTE | 2021-08-10 18:43 | Ultrasound Report ---
US venous doppler UE BI CLINICAL HISTORY: Bilateral upper arm pain and swelling Procedure: side upper extremity real-time compression venous ultrasound with Duplex and Color Doppler imaging. Utilizing real-time ultrasonic imaging multiple real time high-resolution ultrasonic images of the de ep venous system were performed from the forearm through the subclavian vein including evaluation of the jugular vein. Compression real time ultrasonic imaging was performed in addition to color Dopple r imaging and duplex Doppler ultrasound with velocity spectral profile analysis. There is normal compressibility of the deep venous system from the forearm through the subclavian vei n. Normal vascular flow is currently identified. No evidence of acute thrombosis is identified. Impression: No evidence of deep venous thrombus. ACT 112: Negative or not required by law. Electronically signed by: Rizwan Dietrich M.D. 08/10/2021 6:42 PM
[2021-08-11 05:53] LABS: BUN Creatinine Ratio 18.8 (10-20); Calcium 9.3 mg/dl (8.5-10.1); Chol HDL Ratio 3.5 (0-5); Creatinine Clr Calc Pharmacy 74.2 ml/min; Est GFR (African American) 91.5 ml/min; Est GFR (Non-African American) 78.9 ml/min; Potassium 4.1 mmol/L (3.5-5.1)
[2021-08-11 06:29] LABS: Basophils # (auto) 0.03 K/uL (0-0.2); Basophils % (auto) 0.5 %; Eosinophils % (auto) 1.7 %; Hematocrit (blood only) 45.5 % (42-52); Hemoglobin 16.1 g/dL (14.0-18.0); Immature Granulocytes # (auto) 0.01 K/uL (0.00-0.02); Immature Granulocytes % (auto) 0.2 %; Lymphocytes # (auto) 2.02 K/uL (1.2-3.4); Lymphocytes % (auto) 33.6 %; Mean Corpuscular Hemoglobin 31.9 pg (25-34); Mean Corpuscular Hgb Conc 35.4 g/dL (32-36); Mean Corpuscular Volume 90.3 fL (80-100); Mean Platelet Volume 9.7 fL (7.4-10.4); Monocytes # (auto) 0.61 K/uL (0.11-0.59); Monocytes % (auto) 10.1 %; Neutrophils # (auto) 3.24 K/uL (1.4-6.5); Neutrophils % (auto) 53.9 %; Platelet Count 249 K/uL (130-400); RDW Coefficient of Variation 12.6 % (11.5-14.5); RDW Standard Deviation 41.2 fL (36.4-46.3); Red Blood Count 5.04 M/uL (4.7-6.1); White Blood Count 6.01 K/uL (4.8-10.8)
[2021-08-11 07:57] LABS: Estimated Average Glucose 97 mg/dl
[2021-08-11] MEDS ORDERED: ATORVASTATIN 40 MG TAB PO SCH (09:00)
[2021-08-11] MEDS ORDERED: CLOPIDOGREL BISULFATE 75 MG TAB PO SCH (09:00)
[2021-08-11] MEDS ORDERED: ASPIRIN 81 MG ECTAB PO SCH (09:00)
--- NOTE | 2021-08-11 09:07 | Cardiology Consultation ---
Date of Consultation August 11, 2021 Assessment & Plan (1) Stroke-like symptoms: (2) Weakness of left side of body: (3) Brain TIA: (4) HTN (hypertension): At this point I would not have a strong conviction for the patient to be started on anticoagulation. I think antiplatelet therapy should be adequate. I do not believe any additional inpatient cardiac testing is indicated. I will arrange for an outpatient long-term monitoring. I think a ZIO monitor is adequate and would not recommend a loop recorder at this time. The patient may be discharged to outpatient follow-up per neurology and the hospitalist. 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 He is treated for mild essential hypertension. He is a non-smoker and no prior history of diabetes. He is very active and exercises routinely. Cholesterol is normal at 166 with an LDL 104. He has a family history that is significant for his mother having atrial fibrillation. No significant history of ischemic heart disease in his family. On the morning of admission he had left lower extremity clumsiness and weakness followed by left arm clumsiness and weakness. The total duration of his symptoms lasted approximately an hour and a half. 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 His MRI of the brain was negative for any significant findings. Thus far on the telemetry he has remained in a normal sinus rhythm. Echocardiogram essentially shows an anatomically normal heart except for a positive microcavitation study both with and without Valsalva consistent with a PFO. This does not appear to be a high risk PFO as there is no atrial septal aneurysm or jump rope interatrial septum. He remains asymptomatic and feels well this morning. 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 All other 10 point review of systems are negative. Physical Exam Physical Exam: General: no acute distress and stated age Head: normocephalic, no masses, lesions, tenderness or abnormalities Eyes: conjunctiva are pink and non-injected, sclera clear Neck: supple, no adenopathy, no bruits, normal jugular venous pulse, no hepatojugular reflux Chest: normal shape and normal respiratory effort Lungs: clear to auscultation and percussion Cardiac Exam: - regular rate & rhythm, no murmurs gallops or rubs - normal S1, normal S2 Pulses: 2(+) throughout Abdomen: abdomen soft, non-tender, no abnormal masses and no hepatosplenomegaly Musculoskeletal: no gait disturbance, no joint inflammation, no deforming arthritis Extremities: no edema and no cyanosis Neuro: grossly normal exam Results & Data ([facility]) Vital Signs (Past 12 Hours) Vital Signs Temp Pulse Pulse Resp BP Pulse Ox 08/11/21 08:00 63 08/11/21 07:59 76 20 128/84 97 08/11/21 04:00 36.6 C 66 18 125/80 96 08/11/21 00:45 60 08/11/21 00:00 36.8 C 57 L 18 116/76 96 Laboratory Results Laboratory Results - last 24 hr 08/10/21 08/10/21 08/10/21 11:43 11:43 11:43 WBC RBC Hgb Hct MCV MCH MCHC RDW Std Deviation RDW Coeff of Melvi Plt Count MPV Immature Gran % (Auto) Neut % (Auto) Lymph % (Auto) [place] % (Auto) Eos % (Auto) Baso % (Auto) Neut # (Auto) Lymph # (Auto) [place] # (Auto) Eos # (Auto) Baso # (Auto) Immature Gran # (Auto) LA PTT Screen Pending Protein C Activity Pending Protein S Activity Pending Antithrombin III Activ Pending Factor V Leiden Mutat Pending Factor V Leiden Interp Pending Sodium Potassium Chloride Carbon Dioxide Anion Gap BUN Creatinine Est Cr Clr Drug Dosing Est GFR ( Amer) Est GFR (Non-Af Amer) BUN/Creatinine Ratio Glucose Estimat Average Glucose Hemoglobin A1c Calcium Triglycerides Cholesterol LDL Cholesterol, Calc VLDL Cholesterol, Calc HDL Cholesterol Cholesterol/HDL Ratio Beta-2-GPI IgG Ab Pending Beta-2-GPI IgM Ab Pending Prothrombin Gene Mutate Pending Prothromb Gene Comment Pending 08/11/21 08/11/21 08/11/21 05:21 05:21 05:21 WBC 6.01 RBC 5.04 Hgb 16.1 Hct 45.5 MCV 90.3 MCH 31.9 MCHC 35.4 RDW Std Deviation 41.2 RDW Coeff of Melvi 12.6 Plt Count 249 MPV 9.7 Immature Gran % (Auto) 0.2 Neut % (Auto) 53.9 Lymph % (Auto) 33.6 [place] % (Auto) 10.1 Eos % (Auto) 1.7 Baso % (Auto) 0.5 Neut # (Auto) 3.24 Lymph # (Auto) 2.02 [place] # (Auto) 0.61 H Eos # (Auto) 0.10 Baso # (Auto) 0.03 Immature Gran # (Auto) 0.01 LA PTT Screen Protein C Activity Protein S Activity Antithrombin III Activ Factor V Leiden Mutat Factor V Leiden Interp Sodium 136 Potassium 4.1 Chloride 105 Carbon Dioxide 24 Anion Gap 7 BUN 21 Creatinine 1.12 Est Cr Clr Drug Dosing 74.2 Est GFR ( Amer) 91.5 Est GFR (Non-Af Amer) 78.9 BUN/Creatinine Ratio 18.8 Glucose 94 Estimat Average Glucose 97 Hemoglobin A1c 5.0 Calcium 9.3 Triglycerides 77 Cholesterol 166 LDL Cholesterol, Calc 104 VLDL Cholesterol, Calc 15 HDL Cholesterol 47 Cholesterol/HDL Ratio 3.5 Beta-2-GPI IgG Ab Beta-2-GPI IgM Ab Prothrombin Gene Mutate Prothromb Gene Comment Medications Administered Current Inpatient Medications Aspirin (Aspirin 81 Mg Ectab) 81 mg PO QAM [facility] Stop: 09/10/21 08:59 Last Admin: 08/11/21 07:48 Dose: 81 mg Documented by: Atorvastatin Calcium (Atorvastatin 40 Mg Tab) 40 mg PO [facility] Stop: 09/10/21 08:59 Last Admin: 08/11/21 07:48 Dose: 40 mg Documented by: Clopidogrel Bisulfate (Clopidogrel Bisulfate 75 Mg Tab) 75 mg PO [facility] Stop: 09/10/21 08:59 Last Admin: 08/11/21 07:48 Dose: 75 mg Documented by: Miscellaneous Information (Pharmacist Discharge Med Rec Consult) 1 ea N/A UD PRN PRN Reason: Consult Stop: 09/09/21 11:18 (1) HTN (hypertension) Hypertension type: unspecified Qualified Code(s): I10 - Essential (primary) hypertension
--- NOTE | 2021-08-11 11:07 | Progress Notes ---
DATE OF NOTE: 08/11/2021 SUBJECTIVE: I am seeing the patient in followup of a transient ischemic attack. He has had no recurrent events. His echo showed a PFO with spontaneous air contrast and positive with Valsalva maneuver. Venous Doppler of the bilateral upper and lower extremities is normal. MRI of the cervical spine did not show a cervical etiology. He has not had any significant dysrhythmias overnight. He is tolerating dual antiplatelet therapy well. OBJECTIVE: VITAL SIGNS: On exam, 128/84, 63, 20. NEUROLOGIC: Patient is awake and alert. Speech and language are normal. Affect appropriate. Normal extraocular motility, visual mays and facial symmetry as well as sensation. Motor 5/5, no drift. Normal rapid alternating movement. Symmetric reflexes, downgoing toes. Ytkfab-av-ebin and nydr-af-hdya are normal. Gait and tandem are normal. Reflexes are symmetrical. Toes downgoing. Intact to light touch. IMPRESSION: Transient ischemic attack, difficult to localize left arm and leg heaviness and clumsiness without any cranial nerve findings. MRI of the brain shows an old tiny lacune in the left cerebellar hemisphere. The posterior circulation is diminutive which appears congenital. However, the left vert appears stenotic distally. I cannot confidently say this transient ischemic attack is related to the left vert stenosis. PLAN: Dual antiplatelet therapy, aspirin 81 mg daily, Plavix, statin with a goal LDL of 70 or less. Outpatient cardiac monitoring for atrial fibrillation in part because the patient has a family history of atrial fibrillation. Good control of blood pressure, although avoiding hypotension. Regarding a PFO ROPE score is intermediate. I am going to have the patient see one of my stroke colleagues at [facility] for further evaluation and opinion. I certainly would need the results of monitoring and a hypercoagulable state workup prior to making that decision. I have no objections to him being discharged. Job ID: [id number] [facility]
[2021-08-11] MEDS ORDERED: STROKE PATIENT DISCHARGE STA (12:30)
--- NOTE | 2021-08-11 12:37 | Discharge Summary ---
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 At 6 am, while he was about to go for his regular exercise, he experienced left leg heaviness and weakness which did not improve and hence he took 4 baby aspirin at 6:20. He then noticed left arm weakness and hence came to the ED for evaluation. Stroke alert was called and he was seen by teleneurology- however he declined tPA due to minimal symptoms and they were already improving. Stroke work up including CT head, CTA head and neck, MRI brain did not show any acute finding. Hospitalist service was consulted for further management. During my encounter, his symptoms have significantly improved although not back to baseline yet. He did not take his amlodipine today yet. He is not on any other medications. No personal or family history of CVA or VTE. No personal history of cardiopulmonary issues. No h/o CAD or Afib. He does not smoke. Admission Exam Per Admitting Provider General: Sitting comfortably in bed, not in distress, on room air HEENT: EOMI, GOPI, MMM Chest: Clear breath sounds bilaterally, no wheezes or crackles CVS: Regular rate and rhythm, normal heart sounds, no murmur Abdomen: Soft, non tender, not distended, normal bowel sounds Neuro: Awake, alert, orientedx4, non focal exam. No pronator drift. Strength 5/5 in all extremities. Sensation grossly intact. Speech fluent. Finger nose test intact. Cranial nerve exam grossly intact. Gait not checked. Extremities: No cyanosis, clubbing or edema Principal Diagnosis TIA Discharge Exam General: Sitting comfortably in chair, not in distress, on room air HEENT: EOMI, GOPI, MMM Chest: Clear breath sounds bilaterally, no wheezes or crackles CVS: Regular rate and rhythm, normal heart sounds, no murmur Abdomen: Soft, non tender, not distended, normal bowel sounds Neuro: Awake, alert, orientedx4, non focal Extremities: No cyanosis, clubbing or edema Discharge Data Allergies Allergy/AdvReac Type Severity Reaction Status Date / Time No Known Allergies Allergy Verified 08/10/21 09:00 Consultations 08/10/21 08:19 ED Decision to Admit Stat 08/10/21 08:44 Consult Neurology Routine 08/10/21 11:19 Consult Neurology Routine 08/10/21 18:15 Consult Cardiology Routine Ordered Studies 08/10/21 06:49 CT head/brain wo con Stat 08/10/21 06:58 CT angio head w con Stat CT angio neck with con Stat 08/10/21 07:43 MR brain wo con Stat 08/10/21 12:41 MR cervical spine wo/w con Routine 08/10/21 16:34 US venous doppler LE BI Routine US venous doppler UE BI Routine Laboratory Results WBC 6.01 K/uL (4.8-10.8) 08/11/21 05:21 RBC 5.04 M/uL (4.7-6.1) 08/11/21 05:21 Hgb 16.1 g/dL (14.0-18.0) 08/11/21 05:21 Hct 45.5 % (42-52) 08/11/21 05:21 MCV 90.3 fL (80-100) 08/11/21 05:21 MCH 31.9 pg (25-34) 08/11/21 05:21 MCHC 35.4 g/dL (32-36) 08/11/21 05:21 RDW Std Deviation 41.2 fL (36.4-46.3) 08/11/21 05:21 RDW Coeff of Melvi 12.6 % (11.5-14.5) 08/11/21 05:21 Plt Count 249 K/uL (130-400) 08/11/21 05:21 MPV 9.7 fL (7.4-10.4) 08/11/21 05:21 Immature Gran % (Auto) 0.2 % 08/11/21 05:21 Neut % (Auto) 53.9 % 08/11/21 05:21 Lymph % (Auto) 33.6 % 08/11/21 05:21 Hendricks % (Auto) 10.1 % 08/11/21 05:21 Eos % (Auto) 1.7 % 08/11/21 05:21 Baso % (Auto) 0.5 % 08/11/21 05:21 Neut # (Auto) 3.24 K/uL (1.4-6.5) 08/11/21 05:21 Lymph # (Auto) 2.02 K/uL (1.2-3.4) 08/11/21 05:21 Hendricks # (Auto) 0.61 K/uL (0.11-0.59) H 08/11/21 05:21 Eos # (Auto) 0.10 K/uL (0-0.5) 08/11/21 05:21 Baso # (Auto) 0.03 K/uL (0-0.2) 08/11/21 05:21 Immature Gran # (Auto) 0.01 K/uL (0.00-0.02) 08/11/21 05:21 PT 12.0 Seconds (9.0-12.0) 08/10/21 07:08 INR 1.1 (0.9-1.1) 08/10/21 07:08 APTT 29.2 Seconds (21.0-31.0) 08/10/21 07:08 PTT Ratio 1.1 08/10/21 07:08 Sodium 136 mmol/L (136-145) 08/11/21 05:21 Potassium 4.1 mmol/L (3.5-5.1) 08/11/21 05:21 Chloride 105 mmol/L (98-107) 08/11/21 05:21 Carbon Dioxide 24 mmol/L (21-32) 08/11/21 05:21 Anion Gap 7 (3-11) 08/11/21 05:21 BUN 21 mg/dl (6-23) 08/11/21 05:21 Creatinine 1.12 mg/dl (0.6-1.4) 08/11/21 05:21 Est Cr Clr Drug Dosing 74.2 ml/min 08/11/21 05:21 Est GFR ( Amer) 91.5 ml/min 08/11/21 05:21 Est GFR (Non-Af Amer) 78.9 ml/min 08/11/21 05:21 BUN/Creatinine Ratio 18.8 (10-20) 08/11/21 05:21 Glucose 94 mg/dl (70-99(Fasting)) 08/11/21 05:21 POC Glucose 110 mg/dl (70-99) H 08/10/21 07:11 Estimat Average Glucose 97 mg/dl 08/11/21 05:21 Hemoglobin A1c 5.0 % (4.5-5.6) 08/11/21 05:21 Calcium 9.3 mg/dl (8.5-10.1) 08/11/21 05:21 Magnesium 1.9 mg/dl (1.7-2.4) 08/10/21 07:08 Total Bilirubin 0.6 mg/dl (0.2-1.0) 08/10/21 07:08 AST 21 U/L (13-39) 08/10/21 07:08 ALT 18 U/L (7-52) 08/10/21 07:08 Alkaline Phosphatase 55 U/L (34-104) 08/10/21 07:08 Total Protein 6.0 gm/dl (6.0-8.3) 08/10/21 07:08 Albumin 4.0 gm/dl (3.4-5.0) 08/10/21 07:08 Globulin 2.0 gm/dl (2.5-4.0) L 08/10/21 07:08 Albumin/Globulin Ratio 2.0 (0.9-2) 08/10/21 07:08 Triglycerides 77 mg/dl (0-150) 08/11/21 05:21 Cholesterol 166 mg/dl (0-200) 08/11/21 05:21 LDL Cholesterol, Calc 104 mg/dl 08/11/21 05:21 VLDL Cholesterol, Calc 15 mg/dl (0-30) 08/11/21 05:21 HDL Cholesterol 47 mg/dl 08/11/21 05:21 Cholesterol/HDL Ratio 3.5 (0-5) 08/11/21 05:21 SARS-CoV-2, RNA, NAAT NEGATIVE (NEGATIVE) 08/10/21 08:[address] 08/10/21 06:49 CT SCAN OF THE BRAIN WITHOUT IV CONTRAST CLINICAL HISTORY: Strokelike symptoms. Left-sided weakness. COMPARISON STUDY: No priors. TECHNIQUE: Unenhanced axial CT scan of the brain is performed from the vertex to the skull base. A dose lowering technique was utilized adhering to the principles of ALARA. CT DOSE: 638.56 mGycm FINDINGS: Brain parenchyma: A small chronic lacunar infarct is noted in the left cerebellar hemisphere. There is no hemorrhage, mass effect, or evidence of acute territorial ischemia by CT criteria. Gomez-white matter differentiation is preserved. No extra-axial fluid collection is seen. Ventricles, sulci, cisterns: Normal in configuration. Intracranial vasculature: The visualized intracranial vasculature at the skull base is normal in appearance. Calvarium: Unremarkable. Sinuses and mastoids: The visualized paranasal sinuses are clear. The mastoid air cells are well pneumatized. Orbits: The bony orbits are grossly intact. IMPRESSION: 1. Partial no stroke 2. A small chronic lacunar infarct is noted in the left cerebellar hemisphere. ACT 112: Negative or not required by law. Electronically signed by: Carlos Kennedy M.D. 08/10/2021 7:00 AM Head CTA 08/10/21 06:58 CT ANGIOGRAM OF THE BRAIN; CT ANGIOGRAM OF THE NECK CLINICAL HISTORY: Strokelike symptoms. Left-sided weakness. COMPARISON STUDY: Unenhanced CT of the brain performed the same day 08/10/2021. TECHNIQUE: Follow-up the IV administration of 120 of Optiray 320, CT angiogram of the head and neck was performed from the aortic arch to the vertex. Images are reviewed in the axial, sagittal, and coronal planes. 3-D MIPS images are created and assessed. IV contrast was administered without complication. All measurements were calculated based on NASCET criteria. A dose lowering technique was utilized adhering to the principles of ALARA. CT DOSE: 992.93 mGycm FINDINGS: Brain parenchyma: A small chronic lacunar infarct is noted in the left cerebellar hemisphere. There is no evidence of hemorrhage, mass effect, or acute territorial ischemia noting angiographic phase technique. There is no evidence of enhancing mass lesion on the angiogram phase images. The ventricles, sulci, and cisterns are normal in configuration. Gomez-white matter differentiation is preserved. No extra-axial fluid collection is seen. Thoracic aorta: Visualized portions of the thoracic aorta are normal in caliber. The aortic arch demonstrates 4-vessel variant anatomy. Right carotid arterial system: The right common carotid artery is widely patent, as are the right internal and external carotid arteries. Left carotid arterial system: The left common carotid artery is widely patent, as are the left internal and external carotid arteries. Vertebral arteries: The vertebral arteries are widely patent bilaterally noting a right-sided dominance. The left vertebral artery arises directly from the aortic arch. Subclavian arteries: Widely patent bilaterally. Intracranial vasculature: The internal carotid arteries are patent at the skull base, as are the anterior and middle cerebral arteries bilaterally. The vertebrobasilar system is diminutive but patent. There are large bilateral posterior communicating arteries and the posterior cerebral arteries are patent. The right vertebral artery is dominant. The left vertebral artery is diminutive. 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 There is no aneurysm seen throughout the intracranial circulation. Jugular veins: Patent bilaterally. Dural sinuses: Patent. Lung apices: Partially visualized upper lobe lung parenchyma appears clear. Soft tissues: The visualized pharyngeal soft tissues are normal in appearance noting angiographic phase technique. The oropharyngeal airway appears widely patent. The salivary and thyroid glands are normal in appearance. No cervical lymphadenopathy is seen. Skeletal structures: The calvarium appears intact. The cervical spine is within normal limits. Orbits: The bony orbits are intact. Orbital contents are normal as visualized. Sinuses and mastoids: The paranasal sinuses are clear. The mastoid air cells are well pneumatized. IMPRESSION: 1. There is no evidence of hemorrhage, mass effect, or acute territorial ischemia noting angiographic phase technique. 2. The vertebrobasilar system is diminutive MR large bilateral posterior communicating arteries. 3. 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 This vessel is diminutive and this is of indeterminant chronicity and significance. 4. Otherwise unremarkable CT angiogram of the brain. 5. Unremarkable CT angiogram of the neck. ACT 112: Negative or not required by law. Electronically signed by: Carlos Kennedy M.D. 08/10/2021 7:24 AM Neck CTA 08/10/21 06:58 CT ANGIOGRAM OF THE BRAIN; CT ANGIOGRAM OF THE NECK CLINICAL HISTORY: Strokelike symptoms. Left-sided weakness. COMPARISON STUDY: Unenhanced CT of the brain performed the same day 08/10/2021. TECHNIQUE: Follow-up the IV administration of 120 of Optiray 320, CT angiogram of the head and neck was performed from the aortic arch to the vertex. Images are reviewed in the axial, sagittal, and coronal planes. 3-D MIPS images are created and assessed. IV contrast was administered without complication. All measurements were calculated based on NASCET criteria. A dose lowering technique was utilized adhering to the principles of ALARA. CT DOSE: 992.93 mGycm FINDINGS: Brain parenchyma: A small chronic lacunar infarct is noted in the left cerebellar hemisphere. There is no evidence of hemorrhage, mass effect, or acute territorial ischemia noting angiographic phase technique. There is no evidence of enhancing mass lesion on the angiogram phase images. The ventricles, sulci, and cisterns are normal in configuration. Gomez-white matter differentiation is preserved. No extra-axial fluid collection is seen. Thoracic aorta: Visualized portions of the thoracic aorta are normal in caliber. The aortic arch demonstrates 4-vessel variant anatomy. Right carotid arterial system: The right common carotid artery is widely patent, as are the right internal and external carotid arteries. Left carotid arterial system: The left common carotid artery is widely patent, as are the left internal and external carotid arteries. Vertebral arteries: The vertebral arteries are widely patent bilaterally noting a right-sided dominance. The left vertebral artery arises directly from the aortic arch. Subclavian arteries: Widely patent bilaterally. Intracranial vasculature: The internal carotid arteries are patent at the skull base, as are the anterior and middle cerebral arteries bilaterally. The vertebrobasilar system is diminutive but patent. There are large bilateral posterior communicating arteries and the posterior cerebral arteries are patent. The right vertebral artery is dominant. The left vertebral artery is diminutive. 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 There is no aneurysm seen throughout the intracranial circulation. Jugular veins: Patent bilaterally. Dural sinuses: Patent. Lung apices: Partially visualized upper lobe lung parenchyma appears clear. Soft tissues: The visualized pharyngeal soft tissues are normal in appearance noting angiographic phase technique. The oropharyngeal airway appears widely patent. The salivary and thyroid glands are normal in appearance. No cervical lymphadenopathy is seen. Skeletal structures: The calvarium appears intact. The cervical spine is within normal limits. Orbits: The bony orbits are intact. Orbital contents are normal as visualized. Sinuses and mastoids: The paranasal sinuses are clear. The mastoid air cells are well pneumatized. IMPRESSION: 1. There is no evidence of hemorrhage, mass effect, or acute territorial ischemia noting angiographic phase technique. 2. The vertebrobasilar system is diminutive MR large bilateral posterior communicating arteries. 3. 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 This vessel is diminutive and this is of indeterminant chronicity and significance. 4. Otherwise unremarkable CT angiogram of the brain. 5. Unremarkable CT angiogram of the neck. ACT 112: Negative or not required by law. Electronically signed by: Carlos Kennedy M.D. 08/10/2021 7:24 AM Brain MRI 08/10/21 07:43 MR brain wo con CLINICAL HISTORY: L weakness TECHNIQUE: Multiplanar and multisequence MR images of the brain were obtained without intravenous contrast. Comparison: Comparison is made to CTA head and neck 08/10/2021 FINDINGS: No abnormal restricted diffusion is identified. The white matter is unremarkable. The ventricular system is normal in appearance. No mass or abnormal enhancement is seen. There is no mass effect or midline shift. There is no evidence of acute intraparenchymal hemorrhage. No extra axial fluid collections are seen. The corpus callosum, pituitary gland, and cerebellar t onsils appear grossly unremarkable. Flow voids of the major intracranial arterial vessels are identified. The imaged portions of the paranasal sinuses, mastoid air cells, and orbits are unremarkable. IMPRESSION: No acute abnormalities. ACT 112: Negative or not required by law. Electronically signed by: Lev Costello M.D. 08/10/2021 8:58 AM Cervical Spine MRI 08/10/21 12:41 MR cervical spine wo/w con CLINICAL HISTORY: Left arm and leg weakness.. COMPARISON: None. TECHNIQUE: Multiplanar multisequence images of the Cervical Spine were performed were performed with and without IV contrast. Contrast Volume: 6 ml of Gadavist FINDINGS: There is no evidence for vertebral body fracture. The heights of the vertebral bodies are maintained. The vertebral bodies are in anatomic alignment. Homogeneous marrow signal seen without evidence for marrow edema or marrow replacement. The odontoid is intact and the atlantoaxial articulation is within normal limits. The craniocervical junction is within normal limits. Homogeneous signal is seen within the spinal cord. There is no abnormal enhancement following contrast administration. C2-3: The disc space height is maintained. There are no focal disc protrusions or extrusions identified. The spinal canal is patent with no encroachment upon the spinal cord. The neural foramen are patent bilaterally. There is no evidence for nerve root encroachment. The apophyseal joints are within normal limits. C3-4: The disc space height is maintained. There are no focal disc protrusions or extrusions identified. The spinal canal is patent with no encroachment upon the spinal cord. The neural foramen are patent bilaterally. There is no evidence for nerve root encroachment. The apophyseal joints are within normal limits. C4-5: The disc space height is maintained. There are no focal disc protrusions or extrusions identified. The spinal canal is patent with no encroachment upon the spinal cord. The neural foramen are patent bilaterally. There is no evidence for nerve root encroachment. The apophyseal joints are within normal limits. C5-6: The disc space height is maintained. There are no focal disc protrusions or extrusions identified. The spinal canal is patent with no encroachment upon the spinal cord. The neural foramen are patent bilaterally. There is no evidence for nerve root encroachment. The apophyseal joints are within normal limits. C6-7: The disc space height is maintained. There are no focal disc protrusions or extrusions identified. The spinal canal is patent with no encroachment upon the spinal cord. The neural foramen are patent bilaterally. There is no evidence for nerve root encroachment. The apophyseal joints are within normal limits. C7-T1: The disc space height is maintained. There are no focal disc protrusions or extrusions identified. The spinal canal is patent with no encroachment upon the spinal cord. The neural foramen are patent bilaterally. There is no evidence for nerve root encroachment. The apophyseal joints are within normal limits. IMPRESSION: 1. Negative MR of the cervical spine. ACT 112: Negative or not required by law. Electronically signed by: Rizwan Dietrich M.D. 08/10/2021 6:35 PM Venous Doppler Study 08/10/21 16:34 US venous doppler UE BI CLINICAL HISTORY: Bilateral upper arm pain and swelling Procedure: side upper extremity real-time compression venous ultrasound with Duplex and Color Doppler imaging. Utilizing real-time ultrasonic imaging multiple real time high-resolution ultrasonic images of the deep venous system were performed from the forearm through the subclavian vein including evaluation of the jugular vein. Compression real time ultrasonic imaging was performed in addition to color Doppler imaging and duplex Doppler ultrasound with velocity spectral profile analysis. There is normal compressibility of the deep venous system from the forearm through the subclavian vein. Normal vascular flow is currently identified. No evidence of acute thrombosis is identified. Impression: No evidence of deep venous thrombus. ACT 112: Negative or not required by law. Electronically signed by: Rizwan Dietrich M.D. 08/10/2021 6:42 PM Hospital Course (1) TIA (transient ischemic attack): TIA- He declined tPA as minimal symptoms and already improving when he was evaluated by teleneurology. Stroke work up including CT head, CTA head and neck, MRI brain negative for acute stroke. Echo with ASD with probable PFO. Tele with NSR, unremarkable. BP well controlled. Labs unremarkable. MRI cervical spine negative. LE US negative for DVT. Seen by neuro and cardiology. Hypercoagulable work up sent and currently pending. His symptoms have completely resolved. He feels at his baseline. Cardio did not recommend any additional inpatient cardiac testing and did not recommend anticoagulation- stated antiplatelet should be adequate. Cardiology recommended OP zio monitor, no need for loop recorder at this time and will arrange for one. Neurology recommended continuing DAPT and high intensity statin with goal LDL <70. Per neuro, regarding PFO group score is indeterminate and she will discuss with [facility] and will follow up on the hypercoagulable work up. Also recommended adequate BP control but avoiding hypotension. Cleared by cardio and neuro for discharge. He is comfortable and stable for discharge home. Total Time Total Time Spent Total Time Spent (In Minutes): 25 Discharge Plan Discharge Items Patient Disposition: Home - Self-Care Reason For Visit: STROKE LIKE SYMPTOMS Discharge Diagnosis: TIA Activity: Resume your previous activity Non-emergency contact: Primary Care Provider Call non-emergency contact if: you have any medication questions and your symptoms worsen Follow-up/Referrals: Cordell Larkin MD [Primary Care Provider] - Diet: Heart Healthy Addtl Attending Provider Instructions: Continue dual antiplatelet (aspirin/plavix) and lipitor per neurology. Follow up with neurology with the results of pending lab (hypercoagulable work up) Follow up with cardiology for zio monitor Pending Studies at Discharge: Yes (Hypercoagulable work up) Stand-Alone Forms: Medications to Prevent Stroke, My Grid20/20, Smoking Cessation Medications and DC Order Prescriptions: New clopidogrel 75 mg Tablet 75 mg PO QAM Qty: 30 RF: 0 atorvastatin 40 mg Tablet 40 mg PO QAM Qty: 30 RF: 0 aspirin 81 mg Tablet,Delayed Release (Dr/Ec) 81 mg PO QAM Qty: 30 RF: 0 Continued amlodipine 2.5 mg tablet 2.5 mg PO QAM RF: 0 Discontinued aspirin 325 mg Tablet 325 mg PO Q4H PRN (Reason: Pain) RF: 0 Discharge Orders: Discharge Order (Routine); Ordered 08/11/21 Ordered By: Otis Upton Admission Data Admit Date/Time: 08/10/21 09:37 Attending Provider: Otis Upton Admit Provider: Otis Upton Primary Care Provider: Cordell Larkin Other Providers: Juany Ghosh ; Otis Upton ; John Clay
[2021-08-14 00:51] LABS: B2 Glycoprotein IgG <2.0 U/mL (<20.0); B2 Glycoprotein IgM <2.0 U/mL (<20.0); Protein S Functional(Activity) 95 % (70-150)
== END 2021-08-11 13:51 | disposition home or self-care (01) ==
LOC: 1E 06:45 → ED 06:45 → 1E 10:04